=== PATIENT | male | born 1970 | race Caucasian/White ===

== ENCOUNTER 2017-06-01 11:18 | Emergency (ER) | payer BC ==
[~2017-06-01] VITALS: Ht 177.8 cm; Wt 87.5 kg
[2017-06-01 11:21] VITALS: TEMP 36.5; Ht 177.8 cm; Wt 87.5 kg
[2017-06-01] MEDS ORDERED: XYLOCAINE 1%/SOD BICARB 20 ML VIAL INFIL ONE (11:30)
--- NOTE | 2017-06-01 11:30 | EMERGENCY ROOM VISIT NOTE ---
ED Visit Note First contact with patient: 11:23 CHIEF COMPLAINT: Finger laceration HISTORY OF PRESENT ILLNESS: This 46-year-old male patient presents to the emergency department ambulatory after cutting the left second finger on hedge trimmers just prior to arrival. The bleeding has stopped. Denies weakness or numbness of the finger. The patient has full range of motion of the fingers. The patient denies any pain. The patient denies any other injuries. The patient' s tetanus shot is up to date. REVIEW OF SYSTEMS: A 6 system review of systems was completed with positives and pertinent negatives listed in the HPI. ALLERGIES: No known drug allergies MEDICATIONS: Lisinopril, finasteride PMH: Hypertension SOCIAL HISTORY: The patient lives locally. He does not smoke PHYSICAL EXAM: Vital Signs: Reviewed Nurse's notes, vital signs stable. GENERAL : This is a 46-year-old male, in no acute distress, well developed, well nourished. SKIN: There is a 2 cm long flap-like laceration on the palmar aspect of the left second finger. The edges gape apart with traction. There is no foreign material in the wound and it looks clean. There is no significant bleeding. No deep structures such as tendons, bones, or nerves are seen in the base of the wound. Extension and flexion of the finger is full and strong. Full range of motion of the wrist and other fingers. Capillary refill less than 2 seconds. Normal sensation to light and sharp touch. EMERGENCY DEPARTMENT COURSE: I examined the patient. Using sterile technique the wound was cleaned with Betadine. 4 ml of 1% buffered lidocaine was used to perform a digital block to anesthetize the patient. The area was sterilely draped. Once the patient was numb, the wound was copiously irrigated under pressure with sterile saline. The wound was explored and there were no deep structures such as tendons, bone, or ligaments present. The laceration was repaired using 3 simple interrupted 5-0 nylon sutures. The patient tolerated the procedure well. The bleeding stopped. The area was cleaned with sterile saline and dressed with bacitracin ointment and bandage. Given the location of the wound. The DIP, he was placed in a fingertip splint by the emergency department nurse and the position was satisfactory. The patient was discharged home in good condition. The patient was given 600 mg oral Motrin The patient was advised that this tissue flap may and fall off DIAGNOSIS: Finger laceration DISCHARGE INSTRUCTIONS & TREATMENT: Keep wound clean and dry. Do not allow any crusting or dried blood to accumulate on sutures. If this occurs, use a 1:1 solution of hydrogen peroxide/water on a Q-tip to clean the wound. Use an antibiotic ointment for 3-4 days, then let wound dry. Suture removal in 10-12 days. Return sooner for any signs of infection (increasing redness, swelling, drainage). Ice and elevate for swelling and pain. Ibuprofen 600 mg every 6 hrs for pain. Keep covered when in sun until sutures removed then SPF 50 or higher for one year. Vitamin E oil if desired two weeks after suture removal for reduction of scar. Current/Historical Medications Scheduled Finasteride (Proscar), 5 MG PO DAILY Lisinopril (Zestril), 10 MG PO DAILY Allergies Coded Allergies: No Known Allergies (Unverified , 06/01/17) Vital Signs Date Time Temp Pulse Resp B/P (MAP) Pulse Ox O2 Delivery O2 Flow Rate FiO2 06/01/17 12:37 60 120/77 98 06/01/17 11:21 36.5 85 18 115/83 97 Room Air Medications Administered Medications (Trade) Dose Ordered Sig/Kenneth Route Start Time Stop Time Status Last Admin Dose Admin Ibuprofen (Motrin Tab) 600 mg NOW STAT PO 06/01/17 12:24 06/01/17 12:26 DC 06/01/17 12:33 600 MG Departure Information Impression Primary Impression: Laceration of finger Dispostion Home / Self-Care Condition GOOD Referrals No Doctor, Assigned (PCP) Patient Instructions ED Laceration All, My [facility] Additional Instructions Keep wound clean and dry. Do not allow any crusting or dried blood to accumulate on sutures. If this occurs, use a 1:1 solution of hydrogen peroxide/ water on a Q-tip to clean the wound. Use an antibiotic ointment for 3-4 days, then let wound dry. Suture removal in 10-12 days. Return sooner for any signs of infection (increasing redness, swelling, drainage). Ice and elevate for swelling and pain. Ibuprofen 600 mg every 6 hrs for pain. Keep covered when in sun until sutures removed then SPF 50 or higher for one year. Vitamin E oil if desired two weeks after suture removal for reduction of scar. Problem Qualifiers Primary Impression: Laceration of finger Encounter type: initial encounter
[2017-06-01] MEDS ORDERED: LISI-461 PO (11:42)
[2017-06-01] MEDS ORDERED: FINA5TAB PO (11:42)
[2017-06-01] MEDS ORDERED: IBUPROFEN 600 MG TAB PO STA (12:24)
[2017-06-01 12:37] VITALS: BP 120/77; PULSE 60; O2SAT 98
== END 2017-06-01 12:38 | disposition home or self-care (01) ==
LOC: C.EDB 11:21 → C.EDD 12:38
DX: S61.211A Laceration without foreign body of left index finger without damage to nail, initial encounter (principal); I10 Essential (primary) hypertension; Z79.899 Other long term (current) drug therapy; W27.1XXA Contact with garden tool, initial encounter

== ENCOUNTER 2017-06-11 12:03 | Emergency (ER) | payer BC ==
[~2017-06-11] VITALS: Ht 177.8 cm; Wt 88.9 kg
[~2017-06-11 12:03] MED LIST: FINA5TAB PO; LISI-461 PO
[2017-06-11 12:04] VITALS: BP 121/80; PULSE 79; TEMP 37.1; O2SAT 95; Ht 177.8 cm; Wt 88.9 kg
--- NOTE | 2017-06-11 12:13 | EMERGENCY ROOM VISIT NOTE ---
History First contact with patient: 12:08 Chief Complaint: SUTURE/STAPLE REMOVAL Stated Complaint: REMOVAL OF STITCHES Nursing Triage Summary: Pt here for suture removal to left index finger. History of Present Illness The patient is a 46 year old male who presents to the Emergency Room for suture removal from a left index finger laceration that was repaired in our facility 10 days ago. The patient denies any wound complications except for mild numbness around the site of the injury. Review of Systems Noncontributory Past Medical/Surgical History Well documented on previous visit Social History Smoking Status: Never Smoker Current/Historical Medications Scheduled Finasteride (Proscar), 5 MG PO DAILY Lisinopril (Zestril), 10 MG PO DAILY Allergies Coded Allergies: No Known Allergies (Unverified , 06/01/17) Physical Exam Vital Signs Date Time Temp Pulse Resp B/P (MAP) Pulse Ox O2 Delivery O2 Flow Rate FiO2 06/11/17 12:04 37.1 79 18 121/80 95 Room Air Physical Exam MUSCULOSKELETAL: Examination of the left index finger shows a well-healed laceration without erythema, fluctuance, drainage or diastases. Sutures were removed without any complication. Medical Decision & Procedures ED Course The patient was provided additional verbal wound care instructions. Follow-up with family doctor as needed. Medical Decision Impression Primary Impression: Encounter for removal of sutures Additional Impression: Laceration of left index finger Departure Information Referrals Dandre Tineo M.D. (PCP) Patient Instructions My [facility] Problem Qualifiers Additional Impression: Laceration of left index finger Encounter type: subsequent encounter Damage to nail status: without damage Foreign body presence: without foreign body Qualified Codes: S61.211D - Laceration without foreign body of left index finger without damage to nail, subsequent encounter
== END 2017-06-11 12:11 | disposition home or self-care (01) ==
LOC: C.EDB 12:04 → C.EDD 12:11
DX: S61.211D Laceration without foreign body of left index finger without damage to nail, subsequent encounter (principal); X58.XXXD Exposure to other specified factors, subsequent encounter; Z79.899 Other long term (current) drug therapy